=== PATIENT | female | born 1960 | race Caucasian/White ===

== ENCOUNTER 2016-12-07 13:24 | Emergency (ER) | payer OTHER ==
[2016-12-07] MEDS ORDERED: Sodium Chloride 0.9% 1,000 ML IV ONE (16:08)
--- NOTE | 2016-12-07 16:08 | C.PDOC ---
History Of Present Illness 56 y/o female presents to the ED with complaints of "not feeling right" for the past week. Pt reports cough which resolved, burning in bilateral eyes 3 days ago which resolved and states appetite isn't that of her usual. Pt saw PMD 3-4 days ago, told to return for tests but came to ED instead. Denies fever, chills , urinary symptoms, diarrhea or any other complaints. Denies pmhx. Time Seen by Provider: 12/07/16 14:16 Chief Complaint (Nursing): Weakness/Neurological Deficit History Per: Patient History/Exam Limitations: no limitations Onset/Duration Of Symptoms: Days Current Symptoms Are (Timing): Still Present Severity: Mild Recent travel outside of the [place]: No - Symptoms Of CVA Recent Head Trauma: No Past Medical History Reviewed: Historical Data, Nursing Documentation, Vital Signs Vital Signs: Last Vital Signs Temp 98.2 F 12/07/16 17:25 Pulse 66 12/07/16 17:25 Resp 16 12/07/16 17:25 BP 113/75 12/07/16 17:25 Pulse Ox 99 12/07/16 18:05 - Medical History PMH: CAD Family History: States: Unknown Family Hx - Social History Hx Tobacco Use: No Hx Alcohol Use: No Hx Substance Use: No Review Of Systems Except As Marked, All Systems Reviewed And Found Negative. Constitutional: Positive for: Other (decreased appetite). Negative for: Fever, Chills Cardiovascular: Negative for: Chest Pain Respiratory: Negative for: Cough, Shortness of Breath Gastrointestinal: Negative for: Vomiting, Diarrhea Genitourinary: Negative for: Dysuria, Frequency, Hematuria Physical Exam - Physical Exam Appears: Non-toxic, No Acute Distress Skin: Warm, Dry, No Rash Head: Atraumatic, Normacephalic Eye(s): bilateral: Normal Inspection, PERRL, EOMI Ear(s): Bilateral: Normal Nose: Normal Oral Mucosa: Moist Throat: Normal Neck: Normal, Normal ROM, Supple Chest: Symmetrical Cardiovascular: Rhythm Regular, No Murmur Respiratory: Normal Breath Sounds, No Rales, No Rhonchi, No Wheezing Gastrointestinal/Abdominal: Normal Exam, Soft, No Tenderness Extremity: Normal ROM, No Pedal Edema Neurological/Psych: Oriented x3, Normal Speech, Normal Cognition ED Course And Treatment - Laboratory Results Result Diagrams: 12/07/16 16:08 12/07/16 16:08 ECG: Interpreted By Me, Viewed By Me ECG Rhythm: Sinus Rhythm Rate From EC (BPM) O2 Sat by Pulse Oximetry: 99 (room air) Pulse Ox Interpretation: Normal - Radiology CXR: Interpreted by Me CXR Interpretation: Yes: No Acute Disease Progress Note: Plan: EKG, labs, CXR, UA, IV fluids Medical Decision Making Medical Decision Making: Pt stable in the ED Results and plan discussed Labs, x ray ekg unremarkable, (UA "dirty") Cause of symptoms unclear at this time Plan dc home, f/u PCP Disposition - Disposition Disposition: HOME/ ROUTINE Disposition Time: 18:01 Condition: GOOD Additional Instructions: Follow up with PMD Return to the ED for any new or worsening symptoms Instructions: Weakness (ED) - Clinical Impression Clinical Impression: Weakness - Scribe Statement The provider has reviewed the documentation as recorded by the Velia Bray Provider Attestation: All medical record entries made by the Annabelibe were at my direction and personally dictated by me. I have reviewed the chart and agree that the record accurately reflects my personal performance of the history, physical exam, medical decision making, and the department course for this patient. I have also personally directed, reviewed, and agree with the discharge instructions and disposition.
[2016-12-07 16:15] LABS: BASO % 0.2 % (0.0-2.0); EOS # 0.1 K/uL (0.0-0.7); EOS % 1.3 % (0.0-4.0); HEMATOCRIT 39.9 % (34.0-47.0); LYMPH # 1.3 K/uL (1.0-4.3); LYMPH % 28.4 % (20.0-40.0); MEAN CELL VOLUME 93.7 fL (81.0-99.0); MEAN CORPUSCULAR HEMOGLOBIN 30.9 pg (27.0-31.0); MONO # 0.5 K/uL (0.0-0.8); MONO % 11.5 % (0.0-10.0); NRBC % 0.1 % (0.0-2.0); WHITE BLOOD COUNT 4.4 K/uL (4.8-10.8)
[2016-12-07 16:19] LABS: RBC URINE 10 /hpf (0-3); URINE BILIRUBIN NEGATIVE (NEGATIVE); URINE BLOOD NEGATIVE (NEGATIVE); URINE COLOR Yellow (YELLOW); URINE GLUCOSE (UA) NORMAL (Normal); URINE KETONE TRACE mg/dL (NEGATIVE); URINE LEUKOCYTE ESTERASE TRACE Leu/uL (Negative); URINE PROTEIN 1+ mg/dL (NEGATIVE); URINE UROBILINOGEN NORMAL mg/dL (0.2-1.0); WBC URINE 10 /hpf (0-5)
[2016-12-07 16:24] LABS: CHLORIDE 101 mmol/L (98-107); POTASSIUM 3.7 mmol/L (3.6-5.2); SODIUM 141 mmol/L (132-148)
[2016-12-07 16:26] LABS: AST/SGOT 29 U/L (14-36); BILIRUBIN,TOTAL 0.6 mg/dL (0.2-1.3); CARBON DIOXIDE 28 mmol/L (22-30); GFR AFRICAN-AMERICAN > 60
--- NOTE | 2016-12-07 16:26 | RAD ---
HISTORY: abd pain COMPARISON: Chest x-ray performed 05/17/14 TECHNIQUE: Chest PA and lateral FINDINGS: LUNGS: No focal consolidation. Please note that chest x-ray has limited sensitivity for the detection of pulmonary masses. PLEURA: No significant pleural effusion identified. No definite pneumothorax . CARDIOVASCULAR: Heart size appears within normal limits. Atherosclerotic calcification of the aortic knob. OSSEOUS STRUCTURES: Mild degenerate changes of the spine. VISUALIZED UPPER ABDOMEN: Unremarkable. OTHER FINDINGS: None. IMPRESSION: No focal consolidation, significant pleural effusion, or definite pneumothorax identified.
[2016-12-07 16:27] LABS: ALB/GLOB RATIO 1.3 (1.0-2.1); ALKALINE PHOSPHATASE 89 U/L (38-126); ALT/SGPT 19 U/L (9-52); BLOOD UREA NITROGEN 12 mg/dL (7-17); CALCIUM 9.6 mg/dl (8.6-10.4); GLUCOSE,RANDOM 89 mg/dL (65-105); TOTAL PROTEIN 8.3 g/dL (6.3-8.3)
[2016-12-07 17:25] VITALS: BP 113/75; PULSE 66; RESP 16; TEMP 98.2
[2016-12-07] MEDS ORDERED: Sodium Chloride 0.9% 1,000 ML ONE (17:28)
[2016-12-07 18:03] VITALS: O2SAT 99
== END 2016-12-07 18:11 | disposition home or self-care (01) ==
LOC: C.ER 13:24
DX: R53.1 Weakness (principal)
CPT/HCPCS: 71020; 80053; 81001; 85025; 99284; J7040

== ENCOUNTER 2018-03-13 08:18 | Day surgery (SDC) | payer OTHER ==
--- NOTE | 2018-03-13 10:20 | CP.SDSHP ---
Same Day Surgery H & P - History Proposed Procedure: US guided FNA of righ neck node Pre-Op Diagnosis: Lymphadenopathy - Allergies Allergies: Allergies No Known Allergies Allergy (Verified 12/07/16 13:35) - {Optional Preform as Required} ENT: WNL - Impression Impression: Ultrasound of neck did not show any enlarged lymph nodes. Largest lymph node identified in the right and left neck measures 7 mm. No FNA was performed. Pt. Evaluated Today:Candidate for Anesthesia & Procedure: No Short Stay Discharge - Short Stay Discharge Admitting Diagnosis/Reason for Visit: DX:NECK MASS Disposition: HOME/ ROUTINE
== END 2018-03-13 11:00 | disposition home or self-care (01) ==
LOC: C.SPRAD 08:18
PROVIDERS: ATTEND Radiology Vascular & Interventional Radiology
DX: R22.1 Localized swelling, mass and lump, neck (principal); R59.1 Generalized enlarged lymph nodes